=== PATIENT | female | born 1940 | race Caucasian/White ===

== ENCOUNTER 2017-03-24 19:28 | Emergency (ER) | payer OTHER ==
--- NOTE | 2017-03-24 19:40 | PDOC ---
History of Present Illness - General History Source: Patient Exam Limitations: No Limitations - History of Present Illness Initial Comments: 03/24/17 19:48 The patient is a 76 year old female, with a significant past medical history of colon CA, and HTN who presents to the emergency department s/p mechanical fall this morning. The patient reports being unable to ambulate this morning secondary to right hip pain. She reports in an attempt of getting out of bed falling and hitting her head on her mirror. She denies any LOC. The patient reports after the incident being able to walk and go to work normally with some discomfort in her right hip. She arrives with c/os of right hip pain. She reports being on blood thinners. She denies recent fevers, headache or dizziness. She denies recent nausea, vomit, diarrhea or constipation. She denies recent dysuria, frequency, urgency or hematuria. She denies recent chest pain or shortness of breath. PAST MEDICAL HISTORY: See HPI PAST SURGICAL HISTORY: Right THR. FAMILY HISTORY: No pertinent history. SOCIAL HISTORY: Patient lives with family and is employed. MEDICATIONS: Reviewed. ALLERGIES: As per nursing notes. ROS General: No fevers or chills, no weakness, no weight loss HEENT: No change in vision. No sore throat. No ear pain CardioVascular: No chest pain or shortness of breath Respiratory:No cough, or wheezing. Gastrointestinal: No nausea, vomiting, diarrhea or constipation. No rectal bleeding Genitourinary: No dysuria, hematuria, or frequency Musculoskeletal: +RIGHT hip. No joint or muscle pain or swelling Neurologic: No headache, vertigo, dizziness or loss of consciousness Psychiatric: No depression Skin: No rashes or easy bruising Endocrine: no increased thirst or abnormal weight change Allergic: no skin or latex allergy All other systems reviewed and normal Exam: GENERAL: The patient is awake, alert, and fully oriented, in no acute distress. HEAD: Normal with no signs of trauma. No ecchymosis, or tenderness on palpation of the scap. BACK: No tenderness to palpation of the C-Spine. EYES: Pupils equal, round and reactive to light, extraocular movements intact, sclera anicteric, conjunctiva clear. EXTREMITIES: Normal range of motion, no edema. NEUROLOGICAL: Normal speech, normal gait. PSYCH: Normal mood, normal affect. SKIN: Warm, Dry, normal turgor, no rashes or lesions noted. <O'Anastacio,Alli - Last Filed: 03/24/17 19:53> - General History Source: Patient Exam Limitations: No Limitations - History of Present Illness Initial Comments: 03/24/17 21:56 A portion of this note was documented by scribe services under my direction. I have reviewed the details of the note, within reason, and agree with the documentation. The case summary and management plan written by me. Assessment and plan: This is a 76-year-old female who said that she tripped and fell injuring her head and right hip. Patient is on Coumadin so was sent in by her primary care doctor for Coumadin level and x-rays and head CT. 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 Patient had no complaints of headache or neurological complaints. Patient's only complaint was of some right hip pain which she said she had before the fall and has been chronic for many months. Patient was reassured that there is nothing to be concerned about at this point and she is discharged home. <Marie Lujan I - Last Filed: 03/24/17 21:58> - General Chief Complaint: Injury Stated Complaint: TRIPPED AND FELL THIS AM HIT HEAD Time Seen by Provider: 03/24/17 19:30 Past History <Alli Coker - Last Filed: 03/24/17 19:53> - Past Medical History Cancer: Yes (COLON, LUNG, LIVER) Dialysis: Yes HTN: Yes - Surgical History Abdominal Surgery: Yes (COLON, LIVER SX) Orthopedic Surgery: Yes (r. total hip replacement) - Psycho/Social/Smoking Cessation Hx Anxiety: No Suicidal Ideation: No Smoking Status: No Smoking History: Never smoked Have you smoked in the past 12 months: No Number of Cigarettes Smoked Daily: 0 Hx Alcohol Use: No Drug/Substance Use Hx: No Substance Use Type: None <Marie Lujan I - Last Filed: 03/24/17 21:58> - Past Medical History Allergies/Adverse Reactions: Allergies Allergy/AdvReac Type Severity Reaction Status Date / Time Penicillins Allergy Mild rash/itchin Verified 06/25/16 12:13 ess Home Medications: Ambulatory Orders Lisinopril [Prinivil] 5 mg PO DAILY 02/17/12 Metoprolol Succinate [Toprol XL] 25 mg PO DAILY 02/17/12 Cholecalciferol (Vitamin D3) [Vitamin D3 -] 4,000 unit PO DAILY 05/08/16 Ferrous Gluconate [Iron] 256 mg PO BID 05/08/16 Folic Acid 1 mg PO DAILY 05/08/16 Furosemide [Lasix -] 20 mg PO DAILY 05/08/16 Multivits,Ca,Minerals/Iron/FA [One-A-Day Women's] 1 each PO DAILY 05/08/16 Potassium Chloride [K-Dur -] 20 meq PO DAILY 05/08/16 Warfarin Sodium [Coumadin] 7.5 mg PO ASDIR 05/08/16 *Physical Exam - Vital Signs Last Vital Signs Temp Pulse Resp BP Pulse Ox 98.8 F 100 H 18 90/51 96 03/24/17 19:40 03/24/17 19:40 03/24/17 19:40 03/24/17 19:40 03/24/17 19:40 <Alli Coker - Last Filed: 03/24/17 19:53> *DC/Admit/Observation/Transfer - Attestations Scribe Attestion: 03/24/17 19:48 Documentation prepared by Alli Coker, acting as medical care evaluation specialist for Marie Lujan MD. <lAli Coker - Last Filed: 03/24/17 19:53> - Discharge Dispostion Admit: No <Marie Lujan I - Last Filed: 03/24/17 21:58> Diagnosis at time of Disposition: Closed head injury Qualifiers: Encounter type: initial encounter Qualified Code(s): S09.90XA - Unspecified injury of head, initial encounter - Discharge Dispostion Disposition: HOME Condition at time of disposition: Stable - Patient Instructions Printed Discharge Instructions: DI for Closed Head Injury Additional Instructions: Tylenol or Motrin as needed for pain. Return to the emergency department immediately with ANY new, persistent or worsening symptoms. Continue any medications as previously prescribed by your physician. You should follow up with your primary doctor as soon as possible regarding today's emergency department visit. . Please make sure your doctor reviews the results of your emergency evaluation. Thank you for coming to the Emergency Department today for your care. It was a pleasure to see you today. Please note that your evaluation is INCOMPLETE until you follow-up with your doctor.
[2017-03-24 19:45] VITALS: BP 90/51; PULSE 100; TEMP 98.8; BMI 44.6
[2017-03-24 20:14] LABS: INR 2.51 (0.82-1.09); PROTHROMBIN TIME (PATIENT) 27.6 SEC (10.2-13.0)
== END 2017-03-24 22:01 | disposition home or self-care (01) ==
LOC: FER 19:28
DX: S09.90XA Unspecified injury of head, initial encounter (principal); Z85.038 Personal history of other malignant neoplasm of large intestine; Z85.05 Personal history of malignant neoplasm of liver; Z96.641 Presence of right artificial hip joint; I10 Essential (primary) hypertension; Z99.2 Dependence on renal dialysis; Z99.89 Dependence on other enabling machines and devices; W18.39XA Other fall on same level, initial encounter; Y93.89 Activity, other specified; Y92.9 Unspecified place or not applicable
CPT/HCPCS: 36415; 70450-TC; 73523-TC; 85610; 99281-25

== ENCOUNTER 2019-10-15 12:10 | Inpatient (IN) | payer OTHER ==
[2019-10-15] MEDS ORDERED: ALBUTEROL SO4 HFA INHALER IH ONE (12:41)
[2019-10-15] MEDS ORDERED: ACETAMINOPHEN 1000 MG/100 ML VIAL (NON FORMULARY) IVPB ONE (13:38)
[2019-10-15] MEDS ORDERED: ACETAMINOPHEN INJECTION 100 ML IVPB ONE (13:39)
[2019-10-15 13:45] LABS: WHITE BLOOD COUNT 8.1 K/mm3 (4.0-10.8)
[2019-10-15 13:48] LABS: HEMATOCRIT 38.1 % (32.4-45.2); HEMOGLOBIN 12.9 GM/dl (10.7-15.3); MCH 29.5 pg (25.7-33.7); MEAN PLT VOLUME 8.8 fl (7.5-11.1); PLATELET COUNT 195 K/MM3 (134-434); RBC 4.38 M/mm3 (3.60-5.2); RDW 13.3 % (11.6-15.6)
[2019-10-15] MEDS ORDERED: SODIUM CHLORIDE 0.9% 1000 ML INFUS.BAG IV ONE ×2 (13:53→15:16)
[2019-10-15 14:01] LABS: PLATELET ESTIMATE ADEQUATE
[2019-10-15 14:25] LABS: VENOUS PC02 35.6 mmHg (38-52); VENOUS PH 7.49 (7.31-7.41)
[2019-10-15 14:26] LABS: VENOUS PO2 < 49 mmHg (28-48)
[2019-10-15 14:31] LABS: ALBUMIN 2.7 g/dl (3.4-5.0); BILIRUBIN,TOTAL 1.3 mg/dl (0.2-1); CREATININE 0.9 mg/dl (0.55-1.3); POTASSIUM 4.2 mmol/L (3.5-5.1); TOT PROT 6.3 g/dl (6.4-8.2)
[2019-10-15] MEDS ORDERED: AZTREONAM 1 GM in DEXTROSE 5%-WATER - 50 ML IVPB ONE (15:19)
[2019-10-15 15:50] LABS: ACTIVATED PTT 65.4 SECONDS (25.2-36.5)
[2019-10-15 15:53] LABS: INR 13.13 (0.83-1.09)
[2019-10-15 15:58] LABS: N-TERMINAL BNP 822.9 pg/ml (5-450)
[2019-10-15 17:16] LABS: ACTIVATED PTT 51.9 SECONDS (25.2-36.5)
[2019-10-15 18:04] LABS: PROTHROMBIN TIME (PATIENT) 168.4 SEC (9.7-13.0)
[2019-10-15 18:05] LABS: INR 13.9 (0.83-1.09)
[2019-10-15] MEDS ORDERED: PHYTONADIONE 5 MG TABLET PO ONE (18:11)
[2019-10-16] MEDS: SODIUM CHLORIDE 1,000 ML IV SCH (04:37)
[2019-10-16 08:08] LABS: BASO % 0.1 % (0-2.0); HEMATOCRIT 36.5 % (32.4-45.2); HEMOGLOBIN 12.4 GM/dL (10.7-15.3); LYMPH % 4.7 % (8-40); MCH 29.4 pg (25.7-33.7); MCHC 34.1 g/dl (32.0-36.0); MEAN CELL VOLUME 86.3 fl (80-96); MEAN PLT VOLUME 8.3 fl (7.5-11.1); MONO % 4.2 % (3.8-10.2); PLATELET COUNT 182 K/MM3 (134-434); RBC 4.22 M/mm3 (3.60-5.2); RDW 14.6 % (11.6-15.6); WHITE BLOOD COUNT 8.3 K/mm3 (4.0-10.0)
[2019-10-16 08:17] LABS: PROTHROMBIN TIME (PATIENT) 52.7 SEC (9.7-13.0)
[2019-10-16 08:38] LABS: ALBUMIN 2.2 g/dl (3.4-5.0); BILIRUBIN,TOTAL 1.5 mg/dL (0.2-1); BLOOD UREA NITROGEN 13.9 mg/dL (7-18); CALCIUM 7.2 mg/dL (8.5-10.1); CREATININE 0.7 mg/dL (0.55-1.3); POTASSIUM 3.9 mmol/L (3.5-5.1); TOT PROT 5.9 g/dl (6.4-8.2)
[2019-10-16 09:44] LABS: ANISOCYTOSIS 1+; MACROCYTOSIS 0; OVALOCYTE 1+; PLATELET ESTIMATE NORMAL
[2019-10-16] MEDS ORDERED: WARFARIN NA 5 MG TABLET PO SCH (10:00)
[2019-10-16 10:14] LABS: INR 4.4 (0.83-1.09)
[2019-10-16] MEDS ORDERED: CEFEPIME HCL 1 GM VIAL (RESTRICTED TO ID) ONE ×2 (12:43→18:13)
[2019-10-16] MEDS ORDERED: DEXTROSE 5%-WATER - 50 ML IVPB ONE ×2 (12:43→18:14)
[2019-10-16] MEDS: POTASSIUM CHLORIDE TABS 20 MEQ TABLET.ER (FP) PO SCH (13:55)
[2019-10-16] MEDS: ASCORBIC ACID 500 MG TABLET (FP) PO SCH (13:57)
[2019-10-16] MEDS: CEFEPIME 1 GM in DEXTROSE 5%-WATER - 50 ML IVPB SCH ×2 (13:57→18:41)
[2019-10-16] MEDS ORDERED: PT OWN MED DRAWER 7, Y5N ONE ×2 (14:25→20:49)
[2019-10-16] MEDS: HYDROXYCHLOROQUINE SO4 200 MG TABLET (FP) PO SCH ×2 (15:06→21:52)
[2019-10-16] MEDS ORDERED: SODIUM CHLORIDE 250 ML IV STA (15:29)
[2019-10-17] MEDS ORDERED: CEFEPIME HCL 1 GM VIAL (RESTRICTED TO ID) ONE ×3 (01:07→21:54)
[2019-10-17] MEDS ORDERED: DEXTROSE 5%-WATER - 50 ML IVPB ONE ×3 (01:08→21:54)
[2019-10-17] MEDS: CEFEPIME 1 GM in DEXTROSE 5%-WATER - 50 ML IVPB SCH ×3 (01:28→22:02)
[2019-10-17] MEDS: SODIUM CHLORIDE 1,000 ML IV SCH (02:49)
[2019-10-17] MEDS: ASCORBIC ACID 500 MG TABLET (FP) PO SCH (09:01)
[2019-10-17] MEDS: POTASSIUM CHLORIDE TABS 20 MEQ TABLET.ER (FP) PO SCH (09:01)
[2019-10-17] MEDS ORDERED: AZITHROMYCIN IVPB 500 MG/250 ML BAG IVPB ONE (10:00)
[2019-10-17 13:43] LABS: BASO % 0.1 % (0-2.0); HEMOGLOBIN 12.8 GM/dL (10.7-15.3); LYMPH % 3.3 % (8-40); MCH 29.3 pg (25.7-33.7); MCHC 33.7 g/dl (32.0-36.0); MEAN CELL VOLUME 87.1 fl (80-96); MEAN PLT VOLUME 7.8 fl (7.5-11.1); MONO % 3.1 % (3.8-10.2); NEUT % 93.5 % (42.8-82.8); PLATELET COUNT 224 K/MM3 (134-434); RBC 4.36 M/mm3 (3.60-5.2); RDW 15.1 % (11.6-15.6); WHITE BLOOD COUNT 9.3 K/mm3 (4.0-10.0)
[2019-10-17 13:51] LABS: INR 1.77 (0.83-1.09)
[2019-10-17 14:27] LABS: ALBUMIN 2.2 g/dl (3.4-5.0); BILIRUBIN,TOTAL 1.7 mg/dL (0.2-1); BLOOD UREA NITROGEN 11.1 mg/dL (7-18); CALCIUM 7.8 mg/dL (8.5-10.1); CREATININE 0.7 mg/dL (0.55-1.3); POTASSIUM 3.9 mmol/L (3.5-5.1); TOT PROT 6.5 g/dl (6.4-8.2)
[2019-10-17 14:44] LABS: ANISOCYTOSIS 0; MACROCYTOSIS 0; PLATELET ESTIMATE NORMAL
[2019-10-17] MEDS ORDERED: FUROSEMIDE 40 MG/4 ML INJECTABLE VIAL IVPUSH ONE (15:44)
[2019-10-17 17:09] LABS: URINE APPEARANCE TURBID; URINE BILIRUBIN NEGATIVE (NEGATIVE); URINE COLOR DK YELLOW; URINE GLUCOSE (UA) NEGATIVE (NEGATIVE); URINE KETONE NEGATIVE (NEGATIVE); URINE LEUK ESTERASE NEGATIVE (NEGATIVE); URINE NITRITE NEGATIVE (NEGATIVE); URINE PROTEIN 1+ (NEGATIVE)
[2019-10-17] MEDS ORDERED: PT OWN MED DRAWER 7, Y5N ONE (17:20)
[2019-10-17 17:26] LABS: EPI CELLS 14.7 /uL (0-25.1); HYALINE CASTS 2.18 /uL (0-3.1); URINE BACTERIA 4.7 /uL (0-1359); URINE WBC 10.9 /uL (0-25.8)
[2019-10-17] MEDS: WARFARIN NA 5 MG TABLET PO SCH (17:47)
[2019-10-17 17:51] LABS: URINE CRYSTALS MODERATE /hpf
[2019-10-17] MEDS ORDERED: WARFARIN NA 5 MG TABLET PO SCH (18:00)
[2019-10-17] MEDS ORDERED: VANCOMYCIN 1 GRAM (PRE-DOCKED) 1,000 MG/250 ML BAG IVPB ONE (18:33)
[2019-10-17] MEDS: PROPOFOL 1,000,000 MCG/100 ML VIAL IVPB SCH (19:16)
[2019-10-17] MEDS: MIDAZOLAM IN 0.9 % SOD.CHLORID 100 MG/100 ML PLAST..BAG IVPB SCH (19:16)
[2019-10-17] MEDS: VASOPRESSIN 50 UNITS in SODIUM CHLORIDE 97.5 ML IVPB SCH (20:45)
[2019-10-17] MEDS ORDERED: SODIUM CHLORIDE 1,000 ML IV STA (21:35)
[2019-10-17] MEDS: POLYETHYLENE GLYCOL 3350 119 GM BTL PO SCH (21:51)
[2019-10-17] MEDS ORDERED: ATORVASTATIN CA 40 MG TABLET (FP) PO SCH (22:00)
[2019-10-17] MEDS: HYDROXYCHLOROQUINE SO4 200 MG TABLET (FP) PO SCH (22:03)
[2019-10-17] MEDS ORDERED: ACETAMINOPHEN 325 MG TABLET (FP) PO PRN (22:16)
[2019-10-18] MEDS: PROPOFOL 1,000,000 MCG/100 ML VIAL IVPB SCH
[2019-10-18 00:52] LABS: ARTERIAL BLD GAS O2 SATURATION 90.9 % (95-98); ARTERIAL BLOOD GAS BASE EXCESS -1.7 meq/l (-2-2); ARTERIAL BLOOD GAS PCO2 53.3 mmHg (35-45); ARTERIAL BLOOD GAS PO2 67.2 mmHg (80-100); ARTERIAL BLOOD GAS pH 7.29 (7.35-7.45)
[2019-10-18 00:54] LABS: ALLENS TEST POSITIVE
[2019-10-18] MEDS ORDERED: CEFEPIME HCL 1 GM VIAL (RESTRICTED TO ID) ONE ×3 (01:07→17:45)
[2019-10-18] MEDS ORDERED: DEXTROSE 5%-WATER - 50 ML IVPB ONE ×3 (01:07→17:45)
[2019-10-18] MEDS: CEFEPIME 1 GM in DEXTROSE 5%-WATER - 50 ML IVPB SCH ×3 (02:01→18:20)
[2019-10-18] MEDS ORDERED: NOREPINEPHRINE BITARTRATE 4 MG/4 ML ML IV ONE (02:29)
[2019-10-18] MEDS: NOREPINEPHRINE BITARTRATE 8,000 MCG in DEXTROSE 5%-WATER - 492 ML IV SCH (02:35)
[2019-10-18] MEDS: HYDROCORTISONE SOD SUCCINATE 100 MG/2 ML VIAL IVPUSH SCH ×4 (03:12→21:35)
[2019-10-18 03:29] LABS: ARTERIAL BLD GAS O2 SATURATION 93.3 % (95-98); ARTERIAL BLOOD GAS BASE EXCESS -4.3 meq/l (-2-2); ARTERIAL BLOOD GAS PCO2 63.5 mmHg (35-45); ARTERIAL BLOOD GAS PO2 81.9 mmHg (80-100); ARTERIAL BLOOD GAS pH 7.22 (7.35-7.45)
[2019-10-18 03:35] LABS: ALLENS TEST POSITIVE
[2019-10-18 06:45] LABS: BASO % 0.2 % (0-2.0); HEMATOCRIT 38.7 % (32.4-45.2); HEMOGLOBIN 12.9 GM/dL (10.7-15.3); LYMPH % 4.8 % (8-40); MCH 29.4 pg (25.7-33.7); MCHC 33.3 g/dl (32.0-36.0); MEAN CELL VOLUME 88.3 fl (80-96); MEAN PLT VOLUME 8.3 fl (7.5-11.1); MONO % 4.1 % (3.8-10.2); NEUT % 90.9 % (42.8-82.8); PLATELET COUNT 288 K/MM3 (134-434); RBC 4.38 M/mm3 (3.60-5.2); RDW 15.3 % (11.6-15.6); WHITE BLOOD COUNT 14.6 K/mm3 (4.0-10.0)
[2019-10-18 06:57] LABS: INR 2.16 (0.83-1.09); PROTHROMBIN TIME (PATIENT) 25.7 SEC (9.7-13.0)
[2019-10-18 06:59] LABS: ACTIVATED PTT 36.9 SECONDS (25.2-36.5)
[2019-10-18 07:14] LABS: BILIRUBIN,DIRECT 1.8 mg/dL (0.0-0.2); BILIRUBIN,TOTAL 2.2 mg/dL (0.2-1); BLOOD UREA NITROGEN 17.9 mg/dL (7-18); CALCIUM 7.2 mg/dL (8.5-10.1); CREATININE 1.1 mg/dL (0.55-1.3); MAGNESIUM 1.8 mg/dL (1.8-2.4); TOT PROT 6.2 g/dl (6.4-8.2)
[2019-10-18] MEDS: POLYETHYLENE GLYCOL 3350 119 GM BTL PO SCH ×2 (09:22→22:30)
[2019-10-18] MEDS: POTASSIUM CHLORIDE TABS 20 MEQ TABLET.ER (FP) PO SCH (09:22)
[2019-10-18] MEDS: PANTOPRAZOLE SODIUM 40 MG VIAL IVPUSH SCH (09:22)
[2019-10-18] MEDS: HYDROXYCHLOROQUINE SO4 200 MG TABLET (FP) PO SCH (09:22)
[2019-10-18] MEDS: ASCORBIC ACID 500 MG TABLET (FP) PO SCH (09:22)
[2019-10-18] MEDS ORDERED: PANTOPRAZOLE 40 MG TABLET PO SCH (10:00)
[2019-10-18 10:07] LABS: ARTERIAL BLD GAS O2 SATURATION 92.2 % (95-98); ARTERIAL BLOOD GAS BASE EXCESS -4.1 meq/l (-2-2)
[2019-10-18 10:12] LABS: ALLENS TEST POSITIVE; ARTERIAL BLOOD GAS PO2 74.3 mmHg (80-100)
[2019-10-18 10:16] LABS: ARTERIAL BLOOD GAS PCO2 70.9 mmHg (35-45); ARTERIAL BLOOD GAS pH 7.19 (7.35-7.45)
[2019-10-18] MEDS ORDERED: PT OWN MED DRAWER 7, Y5N ONE ×2 (16:00→17:18)
[2019-10-18] MEDS: FLUDROCORTISONE ACETATE 0.1 MG TABLET (FP) PO SCH (16:11)
[2019-10-18] MEDS: WARFARIN NA 5 MG TABLET PO SCH (17:12)
[2019-10-18] MEDS ORDERED: HYDROXYCHLOROQUINE 25 MG/ML NGT SCH (22:00)
[2019-10-18] MEDS: VASOPRESSIN 50 UNITS in SODIUM CHLORIDE 97.5 ML IVPB SCH (23:47)
[2019-10-19] MEDS ORDERED: CEFEPIME HCL 1 GM VIAL (RESTRICTED TO ID) ONE ×3 (01:42→18:39)
[2019-10-19] MEDS ORDERED: DEXTROSE 5%-WATER - 50 ML IVPB ONE ×3 (01:43→18:39)
[2019-10-19] MEDS: CEFEPIME 1 GM in DEXTROSE 5%-WATER - 50 ML IVPB SCH ×3 (01:58→18:57)
[2019-10-19] MEDS: NOREPINEPHRINE BITARTRATE 8,000 MCG in DEXTROSE 5%-WATER - 492 ML IV SCH (01:59)
[2019-10-19] MEDS: HYDROCORTISONE SOD SUCCINATE 100 MG/2 ML VIAL IVPUSH SCH ×4 (02:45→21:54)
[2019-10-19] MEDS ORDERED: EPINEPHrine 1:10,000 (P-F SYR) 1 MG/10 ML DISP.SYRIN ONE (04:44)
[2019-10-19 06:45] LABS: BASO % 0.1 % (0-2.0); HEMATOCRIT 39.9 % (32.4-45.2); HEMOGLOBIN 13.4 GM/dL (10.7-15.3); LYMPH % 3.6 % (8-40); MCH 29.4 pg (25.7-33.7); MCHC 33.7 g/dl (32.0-36.0); MEAN CELL VOLUME 87.3 fl (80-96); MEAN PLT VOLUME 7.9 fl (7.5-11.1); MONO % 3.1 % (3.8-10.2); NEUT % 93.2 % (42.8-82.8); PLATELET COUNT 294 K/MM3 (134-434); RBC 4.57 M/mm3 (3.60-5.2); RDW 15.2 % (11.6-15.6); WHITE BLOOD COUNT 16.4 K/mm3 (4.0-10.0)
[2019-10-19 07:13] LABS: ALBUMIN 1.8 g/dl (3.4-5.0); BILIRUBIN,DIRECT 0.7 mg/dL (0.0-0.2); BILIRUBIN,TOTAL 0.9 mg/dL (0.2-1); BLOOD UREA NITROGEN 28.4 mg/dL (7-18); CALCIUM 7.6 mg/dL (8.5-10.1); MAGNESIUM 1.9 mg/dL (1.8-2.4); PHOSPHOROUS 4.2 mg/dL (2.5-4.9); POTASSIUM 4.1 mmol/L (3.5-5.1); TOT PROT 6.2 g/dl (6.4-8.2)
[2019-10-19 08:45] LABS: ANISOCYTOSIS 1+; MACROCYTOSIS 0; PLATELET ESTIMATE NORMAL
[2019-10-19 09:22] LABS: ARTERIAL BLD GAS O2 SATURATION 97.9 % (95-98); ARTERIAL BLOOD GAS BASE EXCESS -4.5 meq/l (-2-2); ARTERIAL BLOOD GAS PCO2 55.1 mmHg (35-45); ARTERIAL BLOOD GAS PO2 120 mmHg (80-100); ARTERIAL BLOOD GAS pH 7.25 (7.35-7.45)
[2019-10-19 09:57] LABS: ALLENS TEST POSITIVE
[2019-10-19] MEDS: FLUDROCORTISONE ACETATE 0.1 MG TABLET (FP) PO SCH (12:04)
[2019-10-19] MEDS: ASCORBIC ACID 500 MG TABLET (FP) PO SCH (12:04)
[2019-10-19] MEDS: PANTOPRAZOLE SODIUM 40 MG VIAL IVPUSH SCH (12:04)
[2019-10-19] MEDS: POLYETHYLENE GLYCOL 3350 119 GM BTL NGT SCH ×2 (12:05→21:54)
[2019-10-19] MEDS ORDERED: MAGNESIUM SULF 50% (8.12 MEQ/2 ML-1 GM VIAL) IVPB ONE (13:46)
[2019-10-19] MEDS: PROPOFOL 1,000,000 MCG/100 ML VIAL IVPB SCH ×2 (14:38→23:00)
[2019-10-19] MEDS ORDERED: NOREPINEPHRINE BITARTRATE 4 MG/4 ML ML IV ONE (15:34)
[2019-10-19] MEDS ORDERED: PT OWN MED DRAWER 7, Y5N ONE (16:27)
[2019-10-19] MEDS: MIDAZOLAM IN 0.9 % SOD.CHLORID 100 MG/100 ML PLAST..BAG IVPB SCH (17:28)
[2019-10-19] MEDS: WARFARIN NA 5 MG TABLET PO SCH (18:57)
[2019-10-20] MEDS ORDERED: CEFEPIME HCL 1 GM VIAL (RESTRICTED TO ID) ONE ×3 (01:29→18:52)
[2019-10-20] MEDS ORDERED: DEXTROSE 5%-WATER - 50 ML IVPB ONE ×3 (01:29→18:52)
[2019-10-20] MEDS: MIDAZOLAM IN 0.9 % SOD.CHLORID 100 MG/100 ML PLAST..BAG IVPB SCH ×2 (01:32→20:39)
[2019-10-20] MEDS: CEFEPIME 1 GM in DEXTROSE 5%-WATER - 50 ML IVPB SCH ×3 (01:35→18:53)
[2019-10-20] MEDS ORDERED: PT OWN MED DRAWER 7, Y5N ONE (01:51)
[2019-10-20] MEDS: NOREPINEPHRINE BITARTRATE 8,000 MCG in DEXTROSE 5%-WATER - 492 ML IV SCH (02:30)
[2019-10-20] MEDS: HYDROCORTISONE SOD SUCCINATE 100 MG/2 ML VIAL IVPUSH SCH ×4 (03:45→20:59)
[2019-10-20 06:40] LABS: BASO % 0.2 % (0-2.0); HEMATOCRIT 40.6 % (32.4-45.2); HEMOGLOBIN 13.5 GM/dL (10.7-15.3); LYMPH % 2.8 % (8-40); MCH 29.2 pg (25.7-33.7); MCHC 33.3 g/dl (32.0-36.0); MEAN CELL VOLUME 87.8 fl (80-96); MEAN PLT VOLUME 7.5 fl (7.5-11.1); MONO % 3.7 % (3.8-10.2); NEUT % 93.3 % (42.8-82.8); PLATELET COUNT 272 K/MM3 (134-434); RBC 4.63 M/mm3 (3.60-5.2); RDW 15.4 % (11.6-15.6); WHITE BLOOD COUNT 12.1 K/mm3 (4.0-10.0)
[2019-10-20 06:57] LABS: ALBUMIN 1.8 g/dl (3.4-5.0); BILIRUBIN,DIRECT 0.4 mg/dL (0.0-0.2); BILIRUBIN,TOTAL 0.6 mg/dL (0.2-1); BLOOD UREA NITROGEN 36.9 mg/dL (7-18); CALCIUM 7.7 mg/dL (8.5-10.1); CREATININE 1.1 mg/dL (0.55-1.3); MAGNESIUM 2.4 mg/dL (1.8-2.4); PHOSPHOROUS 3.5 mg/dL (2.5-4.9); POTASSIUM 4.2 mmol/L (3.5-5.1); TOT PROT 6.2 g/dl (6.4-8.2)
[2019-10-20 07:03] LABS: ARTERIAL BLD GAS O2 SATURATION 96.5 % (95-98); ARTERIAL BLOOD GAS BASE EXCESS -3.3 meq/l (-2-2); ARTERIAL BLOOD GAS PCO2 54.1 mmHg (35-45); ARTERIAL BLOOD GAS PO2 90.6 mmHg (80-100); ARTERIAL BLOOD GAS pH 7.27 (7.35-7.45)
[2019-10-20 07:39] LABS: ALLENS TEST POSITIVE
[2019-10-20] MEDS: PROPOFOL 1,000,000 MCG/100 ML VIAL IVPB SCH ×3 (07:53→18:51)
[2019-10-20 10:05] LABS: ANISOCYTOSIS 0; MACROCYTOSIS 0; PLATELET ESTIMATE NORMAL
[2019-10-20] MEDS: ASCORBIC ACID 500 MG TABLET (FP) PO SCH (10:29)
[2019-10-20] MEDS: FLUDROCORTISONE ACETATE 0.1 MG TABLET (FP) PO SCH (10:29)
[2019-10-20] MEDS: PANTOPRAZOLE SODIUM 40 MG VIAL IVPUSH SCH (10:29)
[2019-10-20] MEDS: POLYETHYLENE GLYCOL 3350 119 GM BTL NGT SCH ×2 (10:38→21:00)
[2019-10-20] MEDS ORDERED: BENZOIN/ALOE VERA/STORAX/TOLU 58 ML BOTTLE ONE (14:45)
[2019-10-20] MEDS ORDERED: PROPOFOL 1,000,000 MCG/100 ML VIAL ONE (15:06)
[2019-10-20] MEDS ORDERED: fentaNYL CITRATE 250 MCG/5 ML VIAL ONE (15:06)
[2019-10-20] MEDS: WARFARIN NA 5 MG TABLET PO SCH (18:53)
[2019-10-20] MEDS ORDERED: NOREPINEPHRINE BITARTRATE 4 MG/4 ML ML IV ONE (19:37)
[2019-10-20] MEDS: ATORVASTATIN CA 40 MG TABLET (FP) PO SCH (21:00)
[2019-10-20 21:37] LABS: PROTHROMBIN TIME (PATIENT) 135.6 SEC (9.7-13.0)
[2019-10-20 21:41] LABS: INR 11.2 (0.83-1.09)
[2019-10-21] MEDS ORDERED: CEFEPIME HCL 1 GM VIAL (RESTRICTED TO ID) ONE ×3 (00:53→15:30)
[2019-10-21] MEDS ORDERED: DEXTROSE 5%-WATER - 50 ML IVPB ONE ×3 (00:53→15:30)
[2019-10-21] MEDS: CEFEPIME 1 GM in DEXTROSE 5%-WATER - 50 ML IVPB SCH ×3 (01:24→17:51)
[2019-10-21] MEDS: HYDROCORTISONE SOD SUCCINATE 100 MG/2 ML VIAL IVPUSH SCH ×4 (02:05→21:28)
[2019-10-21 06:14] LABS: BASO % 0.2 % (0-2.0); HEMATOCRIT 37.3 % (32.4-45.2); HEMOGLOBIN 12.2 GM/dL (10.7-15.3); LYMPH % 4.2 % (8-40); MCH 29.2 pg (25.7-33.7); MCHC 32.8 g/dl (32.0-36.0); MEAN CELL VOLUME 89.1 fl (80-96); MEAN PLT VOLUME 7.1 fl (7.5-11.1); MONO % 5.9 % (3.8-10.2); NEUT % 89.7 % (42.8-82.8); PLATELET COUNT 270 K/MM3 (134-434); RBC 4.18 M/mm3 (3.60-5.2); RDW 15.5 % (11.6-15.6); WHITE BLOOD COUNT 8.8 K/mm3 (4.0-10.0)
[2019-10-21] MEDS: NOREPINEPHRINE BITARTRATE 8,000 MCG in DEXTROSE 5%-WATER - 492 ML IV SCH (06:28)
[2019-10-21 06:34] LABS: ARTERIAL BLD GAS O2 SATURATION 95.4 % (95-98); ARTERIAL BLOOD GAS BASE EXCESS -2.2 meq/l (-2-2); ARTERIAL BLOOD GAS PO2 83.5 mmHg (80-100)
[2019-10-21 07:09] LABS: ALBUMIN 1.6 g/dl (3.4-5.0); BILIRUBIN,DIRECT 0.3 mg/dL (0.0-0.2); BILIRUBIN,TOTAL 0.4 mg/dL (0.2-1); BLOOD UREA NITROGEN 46.4 mg/dL (7-18); CALCIUM 7.6 mg/dL (8.5-10.1); CREATININE 1.3 mg/dL (0.55-1.3); MAGNESIUM 2.6 mg/dL (1.8-2.4); PHOSPHOROUS 3.5 mg/dL (2.5-4.9); POTASSIUM 4.7 mmol/L (3.5-5.1); TOT PROT 5.6 g/dl (6.4-8.2)
[2019-10-21 07:32] LABS: ALLENS TEST POSITIVE
[2019-10-21 07:45] LABS: ARTERIAL BLOOD GAS PCO2 76.6 mmHg (35-45); ARTERIAL BLOOD GAS pH 7.19 (7.35-7.45)
[2019-10-21] MEDS ORDERED: PHYTONADIONE 10 MG/1 ML AMP IVPB ONE (07:45)
[2019-10-21] MEDS: MIDAZOLAM IN 0.9 % SOD.CHLORID 100 MG/100 ML PLAST..BAG IVPB SCH (09:12)
[2019-10-21] MEDS: PROPOFOL 1,000,000 MCG/100 ML VIAL IVPB SCH (09:13)
[2019-10-21] MEDS: PANTOPRAZOLE SODIUM 40 MG VIAL IVPUSH SCH (09:16)
[2019-10-21] MEDS: ASCORBIC ACID 500 MG TABLET (FP) PO SCH (09:17)
[2019-10-21] MEDS: FLUDROCORTISONE ACETATE 0.1 MG TABLET (FP) PO SCH (09:17)
[2019-10-21] MEDS: POLYETHYLENE GLYCOL 3350 119 GM BTL NGT SCH ×2 (09:20→21:28)
[2019-10-21 09:59] LABS: ANISOCYTOSIS 0; MACROCYTOSIS 0; PLATELET ESTIMATE NORMAL
[2019-10-21] MEDS ORDERED: HYDROXYCHLOROQUINE 200 MG/8 ML ORAL SUSPENSION NGT SCH (14:00)
[2019-10-21] MEDS: HYDROXYCHLOROQUINE 200 MG/8 ML ORAL SUSPENSION NGT SCH ×2 (18:02→21:28)
[2019-10-21 18:50] LABS: PROTHROMBIN TIME (PATIENT) 111.8 SEC (9.7-13.0)
[2019-10-21 18:54] LABS: INR 9.26 (0.83-1.09)
[2019-10-21] MEDS: ATORVASTATIN CA 40 MG TABLET (FP) PO SCH (21:28)
[2019-10-22] MEDS ORDERED: DEXTROSE 5%-WATER - 50 ML IVPB ONE ×3 (00:04→16:41)
[2019-10-22] MEDS ORDERED: CEFEPIME HCL 1 GM VIAL (RESTRICTED TO ID) ONE ×3 (00:04→16:41)
[2019-10-22] MEDS: CEFEPIME 1 GM in DEXTROSE 5%-WATER - 50 ML IVPB SCH ×3 (02:45→17:40)
[2019-10-22] MEDS: PROPOFOL 1,000,000 MCG/100 ML VIAL IVPB SCH (03:12)
[2019-10-22] MEDS: NOREPINEPHRINE BITARTRATE 8,000 MCG in DEXTROSE 5%-WATER - 492 ML IV SCH (03:13)
[2019-10-22] MEDS: HYDROCORTISONE SOD SUCCINATE 100 MG/2 ML VIAL IVPUSH SCH ×4 (03:13→21:11)
[2019-10-22 06:48] LABS: BASO % 0.2 % (0-2.0); EOS % 1.1 % (0-4.5); HEMATOCRIT 40.6 % (32.4-45.2); LYMPH % 3.8 % (8-40); MCH 29.1 pg (25.7-33.7); MCHC 32.1 g/dl (32.0-36.0); MEAN CELL VOLUME 90.5 fl (80-96); MEAN PLT VOLUME 7.4 fl (7.5-11.1); MONO % 5.1 % (3.8-10.2); NEUT % 89.8 % (42.8-82.8); PLATELET COUNT 303 K/MM3 (134-434); RBC 4.49 M/mm3 (3.60-5.2); RDW 15.8 % (11.6-15.6); WHITE BLOOD COUNT 11.7 K/mm3 (4.0-10.0)
[2019-10-22 07:09] LABS: ALBUMIN 1.6 g/dl (3.4-5.0); BILIRUBIN,TOTAL 0.4 mg/dL (0.2-1); BLOOD UREA NITROGEN 58.2 mg/dL (7-18); CALCIUM 7.9 mg/dL (8.5-10.1); CREATININE 1.4 mg/dL (0.55-1.3); MAGNESIUM 2.6 mg/dL (1.8-2.4); PHOSPHOROUS 4.3 mg/dL (2.5-4.9); POTASSIUM 5.7 mmol/L (3.5-5.1); TOT PROT 6.2 g/dl (6.4-8.2)
[2019-10-22 07:25] LABS: INR 3.15 (0.83-1.09); PROTHROMBIN TIME (PATIENT) 37.6 SEC (9.7-13.0)
[2019-10-22 08:15] LABS: ARTERIAL BLD GAS O2 SATURATION 98.4 % (95-98); ARTERIAL BLOOD GAS BASE EXCESS -3.3 meq/l (-2-2); ARTERIAL BLOOD GAS PO2 150 mmHg (80-100)
[2019-10-22 08:23] LABS: ALLENS TEST POSITIVE
[2019-10-22] MEDS: FLUDROCORTISONE ACETATE 0.1 MG TABLET (FP) PO SCH (10:04)
[2019-10-22] MEDS: POLYETHYLENE GLYCOL 3350 119 GM BTL NGT SCH ×2 (10:04→21:11)
[2019-10-22] MEDS: HYDROXYCHLOROQUINE 200 MG/8 ML ORAL SUSPENSION NGT SCH ×2 (10:05→21:11)
[2019-10-22] MEDS: ASCORBIC ACID 500 MG TABLET (FP) PO SCH (10:05)
[2019-10-22] MEDS: PANTOPRAZOLE SODIUM 40 MG VIAL IVPUSH SCH (10:05)
[2019-10-22 12:49] LABS: PLATELET ESTIMATE ADEQUATE
[2019-10-22] MEDS ORDERED: ZINC SULFATE 220 MG CAPSULE (FP) PO SCH (14:45)
[2019-10-22 17:27] LABS: ARTERIAL BLD GAS O2 SATURATION 98.5 % (95-98); ARTERIAL BLOOD GAS BASE EXCESS 0.9 meq/l (-2-2); ARTERIAL BLOOD GAS PCO2 66.2 mmHg (35-45); ARTERIAL BLOOD GAS PO2 129 mmHg (80-100); ARTERIAL BLOOD GAS pH 7.26 (7.35-7.45)
[2019-10-22 17:29] LABS: ALLENS TEST POSITIVE
[2019-10-22] MEDS: ATORVASTATIN CA 40 MG TABLET (FP) PO SCH (21:11)
[2019-10-23] MEDS ORDERED: CEFEPIME HCL 1 GM VIAL (RESTRICTED TO ID) ONE ×3 (00:49→17:58)
[2019-10-23] MEDS ORDERED: DEXTROSE 5%-WATER - 50 ML IVPB ONE ×3 (00:50→17:58)
[2019-10-23] MEDS: PROPOFOL 1,000,000 MCG/100 ML VIAL IVPB SCH (01:41)
[2019-10-23] MEDS: CEFEPIME 1 GM in DEXTROSE 5%-WATER - 50 ML IVPB SCH ×3 (01:42→18:41)
[2019-10-23 06:52] LABS: BASO % 0.1 % (0-2.0); EOS % 0.1 % (0-4.5); HEMATOCRIT 36.1 % (32.4-45.2); LYMPH % 3.4 % (8-40); MCH 29.5 pg (25.7-33.7); MCHC 33.4 g/dl (32.0-36.0); MEAN CELL VOLUME 88.4 fl (80-96); MEAN PLT VOLUME 7.3 fl (7.5-11.1); NEUT % 91.4 % (42.8-82.8); PLATELET COUNT 212 K/MM3 (134-434); RBC 4.08 M/mm3 (3.60-5.2); RDW 15.2 % (11.6-15.6); WHITE BLOOD COUNT 8.6 K/mm3 (4.0-10.0)
[2019-10-23 06:59] LABS: PROTHROMBIN TIME (PATIENT) 51.5 SEC (9.7-13.0)
[2019-10-23 07:33] LABS: INR 4.3 (0.83-1.09)
[2019-10-23 07:43] LABS: ALBUMIN 1.6 g/dl (3.4-5.0); BILIRUBIN,TOTAL 0.6 mg/dL (0.2-1); BLOOD UREA NITROGEN 71.7 mg/dL (7-18); CALCIUM 7.9 mg/dL (8.5-10.1); CREATININE 1.3 mg/dL (0.55-1.3); MAGNESIUM 2.5 mg/dL (1.8-2.4); PHOSPHOROUS 2.8 mg/dL (2.5-4.9); TOT PROT 5.8 g/dl (6.4-8.2)
[2019-10-23 10:07] LABS: ARTERIAL BLOOD GAS BASE EXCESS 4.4 meq/l (-2-2); ARTERIAL BLOOD GAS PCO2 56.8 mmHg (35-45); ARTERIAL BLOOD GAS PO2 89.4 mmHg (80-100); ARTERIAL BLOOD GAS pH 7.35 (7.35-7.45)
[2019-10-23 10:12] LABS: ALLENS TEST POSITIVE
[2019-10-23 10:48] LABS: ANISOCYTOSIS 1+; MACROCYTOSIS 0; OVALOCYTE 1+; PLATELET ESTIMATE NORMAL; TEAR DROP CELLS 1+
[2019-10-23] MEDS: ASCORBIC ACID 500 MG TABLET (FP) PO SCH (11:00)
[2019-10-23] MEDS: PANTOPRAZOLE SODIUM 40 MG VIAL IVPUSH SCH (11:00)
[2019-10-23] MEDS: POLYETHYLENE GLYCOL 3350 119 GM BTL NGT SCH ×2 (11:00→22:35)
[2019-10-23] MEDS: HYDROXYCHLOROQUINE 200 MG/8 ML ORAL SUSPENSION NGT SCH ×2 (11:00→22:35)
[2019-10-23] MEDS: DOPAMINE 400 MG/D5W - 400,000 MCG/250 ML INFUS.BAG IVPB SCH ×2 (18:27→18:28)
[2019-10-23] MEDS: NOREPINEPHRINE BITARTRATE 8,000 MCG in DEXTROSE 5%-WATER - 492 ML IV SCH (18:41)
[2019-10-23] MEDS: MIDAZOLAM IN 0.9 % SOD.CHLORID 100 MG/100 ML PLAST..BAG IVPB SCH (18:42)
[2019-10-23] MEDS: ATORVASTATIN CA 40 MG TABLET (FP) PO SCH (22:26)
[2019-10-24] MEDS: PROPOFOL 1,000,000 MCG/100 ML VIAL IVPB SCH ×2 (02:00→10:16)
[2019-10-24] MEDS ORDERED: CEFEPIME HCL 1 GM VIAL (RESTRICTED TO ID) ONE ×2 (02:12→09:23)
[2019-10-24] MEDS ORDERED: DEXTROSE 5%-WATER - 50 ML IVPB ONE ×2 (02:12→09:23)
[2019-10-24] MEDS: CEFEPIME 1 GM in DEXTROSE 5%-WATER - 50 ML IVPB SCH ×2 (02:16→10:02)
[2019-10-24] MEDS: NOREPINEPHRINE BITARTRATE 8,000 MCG in DEXTROSE 5%-WATER - 492 ML IV SCH (06:21)
[2019-10-24 07:09] LABS: BASO % 0.1 % (0-2.0); EOS % 0.2 % (0-4.5); HEMATOCRIT 31.9 % (32.4-45.2); HEMOGLOBIN 10.8 GM/dL (10.7-15.3); LYMPH % 7.8 % (8-40); MCH 29.7 pg (25.7-33.7); MCHC 33.8 g/dl (32.0-36.0); MEAN CELL VOLUME 87.8 fl (80-96); MEAN PLT VOLUME 7.5 fl (7.5-11.1); MONO % 6.1 % (3.8-10.2); NEUT % 85.8 % (42.8-82.8); PLATELET COUNT 171 K/MM3 (134-434); RBC 3.64 M/mm3 (3.60-5.2); RDW 14.8 % (11.6-15.6); WHITE BLOOD COUNT 6.3 K/mm3 (4.0-10.0)
[2019-10-24 07:37] LABS: INR 3.19 (0.83-1.09); PROTHROMBIN TIME (PATIENT) 38.1 SEC (9.7-13.0)
[2019-10-24 07:48] LABS: ALBUMIN 1.4 g/dl (3.4-5.0); BILIRUBIN,TOTAL 1.1 mg/dL (0.2-1); BLOOD UREA NITROGEN 81.8 mg/dL (7-18); CALCIUM 7.6 mg/dL (8.5-10.1); CREATININE 1.1 mg/dL (0.55-1.3); MAGNESIUM 2.3 mg/dL (1.8-2.4); PHOSPHOROUS 2.7 mg/dL (2.5-4.9); POTASSIUM 4.4 mmol/L (3.5-5.1); TOT PROT 5.2 g/dl (6.4-8.2)
[2019-10-24 09:11] LABS: ARTERIAL BLD GAS O2 SATURATION 99.1 % (95-98); ARTERIAL BLOOD GAS BASE EXCESS 5.2 meq/l (-2-2); ARTERIAL BLOOD GAS PO2 149 mmHg (80-100); ARTERIAL BLOOD GAS pH 7.46 (7.35-7.45)
[2019-10-24 09:13] LABS: ALLENS TEST POSITIVE
[2019-10-24] MEDS: ASCORBIC ACID 500 MG TABLET (FP) PO SCH (10:02)
[2019-10-24] MEDS: PANTOPRAZOLE SODIUM 40 MG VIAL IVPUSH SCH (10:02)
[2019-10-24] MEDS: POLYETHYLENE GLYCOL 3350 119 GM BTL NGT SCH ×2 (10:03→21:28)
[2019-10-24] MEDS: HYDROXYCHLOROQUINE 200 MG/8 ML ORAL SUSPENSION NGT SCH ×2 (10:03→21:29)
[2019-10-24 13:03] LABS: ANISOCYTOSIS 0; MACROCYTOSIS 0; PLATELET ESTIMATE NORMAL
[2019-10-24] MEDS: MIDAZOLAM IN 0.9 % SOD.CHLORID 100 MG/100 ML PLAST..BAG IVPB SCH (13:15)
[2019-10-24] MEDS ORDERED: FUROSEMIDE 40 MG/4 ML INJECTABLE VIAL IVPUSH ONE (14:15)
[2019-10-24] MEDS ORDERED: ZINC SULFATE 220 MG CAPSULE (FP) PO SCH (14:15)
[2019-10-24] MEDS: DOPAMINE 400 MG/D5W - 400,000 MCG/250 ML INFUS.BAG IVPB SCH (15:14)
[2019-10-24] MEDS: ATORVASTATIN CA 40 MG TABLET (FP) PO SCH (21:28)
[2019-10-24] MEDS: ZINC SULFATE 220 MG CAPSULE (FP) PO SCH (21:28)
[2019-10-24] MEDS: WARFARIN NA 5 MG TABLET PO SCH (21:29)
[2019-10-25 06:02] LABS: ARTERIAL BLD GAS O2 SATURATION 95.4 % (95-98); ARTERIAL BLOOD GAS BASE EXCESS 7.2 meq/l (-2-2); ARTERIAL BLOOD GAS PCO2 51.1 mmHg (35-45); ARTERIAL BLOOD GAS PO2 75.3 mmHg (80-100); ARTERIAL BLOOD GAS pH 7.42 (7.35-7.45)
[2019-10-25 07:04] LABS: BASO % 0.1 % (0-2.0); EOS % 0.1 % (0-4.5); HEMATOCRIT 34.6 % (32.4-45.2); HEMOGLOBIN 11.6 GM/dL (10.7-15.3); LYMPH % 8.8 % (8-40); MCH 29.2 pg (25.7-33.7); MCHC 33.6 g/dl (32.0-36.0); MEAN CELL VOLUME 86.8 fl (80-96); MEAN PLT VOLUME 8.2 fl (7.5-11.1); PLATELET COUNT 184 K/MM3 (134-434); RBC 3.98 M/mm3 (3.60-5.2); RDW 14.8 % (11.6-15.6); WHITE BLOOD COUNT 7.9 K/mm3 (4.0-10.0)
[2019-10-25 07:12] LABS: INR 1.92 (0.83-1.09); PROTHROMBIN TIME (PATIENT) 22.8 SEC (9.7-13.0)
[2019-10-25 07:27] LABS: ALBUMIN 1.5 g/dl (3.4-5.0); BILIRUBIN,TOTAL 0.5 mg/dL (0.2-1); BLOOD UREA NITROGEN 79.3 mg/dL (7-18); CALCIUM 7.8 mg/dL (8.5-10.1); CREATININE 1.2 mg/dL (0.55-1.3); PHOSPHOROUS 3.3 mg/dL (2.5-4.9); POTASSIUM 3.9 mmol/L (3.5-5.1); TOT PROT 5.7 g/dl (6.4-8.2)
[2019-10-25 08:23] LABS: ALLENS TEST POSITIVE
[2019-10-25] MEDS: POLYETHYLENE GLYCOL 3350 119 GM BTL NGT SCH ×2 (09:53→23:45)
[2019-10-25] MEDS: ZINC SULFATE 220 MG CAPSULE (FP) PO SCH ×2 (09:54→23:45)
[2019-10-25] MEDS: PANTOPRAZOLE SODIUM 40 MG VIAL IVPUSH SCH (09:54)
[2019-10-25] MEDS: ASCORBIC ACID 500 MG TABLET (FP) PO SCH (09:55)
[2019-10-25 11:39] LABS: ANISOCYTOSIS 1+; MACROCYTOSIS 0; OVALOCYTE 1+; PLATELET ESTIMATE NORMAL
[2019-10-25] MEDS: CLINDAMYCIN 600MG PREMIX IVPB 600 MG/50 ML BAG IVPB SCH ×2 (17:16→17:17)
[2019-10-25] MEDS: WARFARIN NA 5 MG TABLET PO SCH (17:18)
[2019-10-25] MEDS: ATORVASTATIN CA 40 MG TABLET (FP) PO SCH (23:46)
[2019-10-25] MEDS: PROPOFOL 1,000,000 MCG/100 ML VIAL IVPB SCH (23:47)
[2019-10-26] MEDS: CLINDAMYCIN 600MG PREMIX IVPB 600 MG/50 ML BAG IVPB SCH ×3 (02:47→17:56)
[2019-10-26] MEDS: MIDAZOLAM IN 0.9 % SOD.CHLORID 100 MG/100 ML PLAST..BAG IVPB SCH (05:38)
[2019-10-26] MEDS: PROPOFOL 1,000,000 MCG/100 ML VIAL IVPB SCH (05:39)
[2019-10-26 06:58] LABS: BASO % 0.1 % (0-2.0); HEMATOCRIT 29.8 % (32.4-45.2); LYMPH % 10.9 % (8-40); MCH 29.5 pg (25.7-33.7); MCHC 33.5 g/dl (32.0-36.0); MEAN PLT VOLUME 8.3 fl (7.5-11.1); MONO % 6.2 % (3.8-10.2); NEUT % 82.8 % (42.8-82.8); PLATELET COUNT 163 K/MM3 (134-434); RBC 3.38 M/mm3 (3.60-5.2); RDW 14.7 % (11.6-15.6); WHITE BLOOD COUNT 7.7 K/mm3 (4.0-10.0)
[2019-10-26 07:06] LABS: INR 2.97 (0.83-1.09); PROTHROMBIN TIME (PATIENT) 35.4 SEC (9.7-13.0)
[2019-10-26 07:24] LABS: ALBUMIN 1.4 g/dl (3.4-5.0); BILIRUBIN,TOTAL 0.6 mg/dL (0.2-1); BLOOD UREA NITROGEN 70.8 mg/dL (7-18); PHOSPHOROUS 3.8 mg/dL (2.5-4.9); POTASSIUM 3.7 mmol/L (3.5-5.1); TOT PROT 5.6 g/dl (6.4-8.2)
[2019-10-26 07:36] LABS: ARTERIAL BLD GAS O2 SATURATION 94.1 % (95-98); ARTERIAL BLOOD GAS BASE EXCESS 11.6 meq/l (-2-2); ARTERIAL BLOOD GAS PCO2 63.5 mmHg (35-45); ARTERIAL BLOOD GAS PO2 74.4 mmHg (80-100)
[2019-10-26 07:39] LABS: ALLENS TEST POSITIVE
[2019-10-26] MEDS: ZINC SULFATE 220 MG CAPSULE (FP) PO SCH ×3 (09:08→21:36)
[2019-10-26] MEDS: PANTOPRAZOLE SODIUM 40 MG VIAL IVPUSH SCH (09:09)
[2019-10-26] MEDS: ASCORBIC ACID 500 MG TABLET (FP) PO SCH (09:09)
[2019-10-26] MEDS: POLYETHYLENE GLYCOL 3350 119 GM BTL NGT SCH ×2 (09:10→21:36)
[2019-10-26] MEDS ORDERED: FUROSEMIDE 40 MG/4 ML INJECTABLE VIAL IVPUSH ONE (12:05)
[2019-10-26 12:06] LABS: ANISOCYTOSIS 0; MACROCYTOSIS 0; PLATELET ESTIMATE NORMAL
[2019-10-26] MEDS: WARFARIN NA 5 MG TABLET PO SCH (18:14)
[2019-10-26] MEDS: ATORVASTATIN CA 40 MG TABLET (FP) PO SCH (21:35)
[2019-10-27] MEDS: CLINDAMYCIN 600MG PREMIX IVPB 600 MG/50 ML BAG IVPB SCH ×3 (03:03→18:13)
[2019-10-27] MEDS: PROPOFOL 1,000,000 MCG/100 ML VIAL IVPB SCH ×3 (03:04→23:10)
[2019-10-27] MEDS: MIDAZOLAM IN 0.9 % SOD.CHLORID 100 MG/100 ML PLAST..BAG IVPB SCH ×2 (06:14→14:00)
[2019-10-27 07:18] LABS: ARTERIAL BLD GAS O2 SATURATION 92.6 % (95-98); ARTERIAL BLOOD GAS BASE EXCESS 13.2 meq/l (-2-2); ARTERIAL BLOOD GAS PCO2 64.6 mmHg (35-45)
[2019-10-27 07:42] LABS: ALLENS TEST POSITIVE
[2019-10-27 07:43] LABS: BASO % 0.1 % (0-2.0); HEMATOCRIT 33.6 % (32.4-45.2); HEMOGLOBIN 11.1 GM/dL (10.7-15.3); LYMPH % 6.3 % (8-40); MCH 29.2 pg (25.7-33.7); MEAN CELL VOLUME 88.3 fl (80-96); MEAN PLT VOLUME 8.9 fl (7.5-11.1); MONO % 5.9 % (3.8-10.2); NEUT % 87.7 % (42.8-82.8); PLATELET COUNT 208 K/MM3 (134-434); RBC 3.81 M/mm3 (3.60-5.2); RDW 14.7 % (11.6-15.6); WHITE BLOOD COUNT 9.8 K/mm3 (4.0-10.0)
[2019-10-27 07:49] LABS: PROTHROMBIN TIME (PATIENT) 73.3 SEC (9.7-13.0)
[2019-10-27 08:08] LABS: ALBUMIN 1.5 g/dl (3.4-5.0); BILIRUBIN,TOTAL 0.5 mg/dL (0.2-1); BLOOD UREA NITROGEN 68.1 mg/dL (7-18); CREATININE 1.2 mg/dL (0.55-1.3); MAGNESIUM 2.1 mg/dL (1.8-2.4); POTASSIUM 3.4 mmol/L (3.5-5.1); TOT PROT 5.5 g/dl (6.4-8.2)
[2019-10-27] MEDS ORDERED: POTASSIUM CHLORIDE ORAL LIQUID 20 MEQ/15 ML PO ONE (08:30)
[2019-10-27 08:46] LABS: INR 6.1 (0.83-1.09)
[2019-10-27] MEDS: KCL 10 MEQ IVPB 10 MEQ/100 ML INFUS.BAG IVPB SCH ×2 (09:30→10:30)
[2019-10-27] MEDS: POLYETHYLENE GLYCOL 3350 119 GM BTL NGT SCH ×2 (10:00→23:12)
[2019-10-27] MEDS: PANTOPRAZOLE SODIUM 40 MG VIAL IVPUSH SCH (11:00)
[2019-10-27] MEDS: ZINC SULFATE 220 MG CAPSULE (FP) PO SCH ×2 (11:00→23:10)
[2019-10-27] MEDS: ASCORBIC ACID 500 MG TABLET (FP) PO SCH (11:00)
[2019-10-27] MEDS ORDERED: FUROSEMIDE 40 MG/4 ML INJECTABLE VIAL IVPUSH ONE (14:50)
[2019-10-27] MEDS: ATORVASTATIN CA 40 MG TABLET (FP) PO SCH (23:12)
[2019-10-27] MEDS ORDERED: ATORVASTATIN CA 20 MG TABLET (FP) ONE (23:12)
[2019-10-28] MEDS: PROPOFOL 1,000,000 MCG/100 ML VIAL IVPB SCH ×3 (01:18→20:59)
[2019-10-28] MEDS: CLINDAMYCIN 600MG PREMIX IVPB 600 MG/50 ML BAG IVPB SCH ×3 (01:18→18:30)
[2019-10-28] MEDS: MIDAZOLAM IN 0.9 % SOD.CHLORID 100 MG/100 ML PLAST..BAG IVPB SCH (05:47)
[2019-10-28 07:39] LABS: PROTHROMBIN TIME (PATIENT) 52.6 SEC (9.7-13.0)
[2019-10-28 08:02] LABS: ALBUMIN 1.4 g/dl (3.4-5.0); BILIRUBIN,TOTAL 0.6 mg/dL (0.2-1); BLOOD UREA NITROGEN 65.2 mg/dL (7-18); CALCIUM 7.5 mg/dL (8.5-10.1); MAGNESIUM 2.3 mg/dL (1.8-2.4); PHOSPHOROUS 3.6 mg/dL (2.5-4.9); POTASSIUM 3.5 mmol/L (3.5-5.1); TOT PROT 5.3 g/dl (6.4-8.2)
[2019-10-28 08:41] LABS: INR 4.39 (0.83-1.09)
[2019-10-28 08:45] LABS: ARTERIAL BLD GAS O2 SATURATION 93.1 % (95-98); ARTERIAL BLOOD GAS BASE EXCESS 13.3 meq/l (-2-2); ARTERIAL BLOOD GAS PCO2 56.3 mmHg (35-45); ARTERIAL BLOOD GAS PO2 66.8 mmHg (80-100); ARTERIAL BLOOD GAS pH 7.46 (7.35-7.45)
[2019-10-28 08:46] LABS: ALLENS TEST POSITIVE
[2019-10-28] MEDS: POLYETHYLENE GLYCOL 3350 119 GM BTL NGT SCH ×2 (10:30→21:00)
[2019-10-28] MEDS: PANTOPRAZOLE SODIUM 40 MG VIAL IVPUSH SCH (10:30)
[2019-10-28] MEDS: ZINC SULFATE 220 MG CAPSULE (FP) PO SCH ×2 (10:30→20:59)
[2019-10-28] MEDS: ASCORBIC ACID 500 MG TABLET (FP) PO SCH (10:30)
[2019-10-28] MEDS ORDERED: FUROSEMIDE 40 MG/4 ML INJECTABLE VIAL IVPUSH ONE (11:00)
[2019-10-28] MEDS ORDERED: PT OWN MED DRAWER 7, Y5N ONE (11:42)
[2019-10-28 13:39] LABS: BASO % 0.1 % (0-2.0); HEMATOCRIT 21.9 % (32.4-45.2); HEMOGLOBIN 7.3 GM/dL (10.7-15.3); LYMPH % 6.9 % (8-40); MCH 29.5 pg (25.7-33.7); MCHC 33.2 g/dl (32.0-36.0); MEAN PLT VOLUME 8.7 fl (7.5-11.1); MONO % 11.6 % (3.8-10.2); NEUT % 81.4 % (42.8-82.8); PLATELET COUNT 109 K/MM3 (134-434); RBC 2.46 M/mm3 (3.60-5.2); RDW 14.8 % (11.6-15.6); WHITE BLOOD COUNT 7.4 K/mm3 (4.0-10.0)
[2019-10-28 19:31] LABS: BASO % 0.3 % (0-2.0); EOS % 0.1 % (0-4.5); HEMATOCRIT 35.2 % (32.4-45.2); HEMOGLOBIN 11.4 GM/dL (10.7-15.3); LYMPH % 6.6 % (8-40); MCH 28.8 pg (25.7-33.7); MCHC 32.4 g/dl (32.0-36.0); MEAN CELL VOLUME 88.9 fl (80-96); MONO % 6.5 % (3.8-10.2); NEUT % 86.5 % (42.8-82.8); PLATELET COUNT 234 K/MM3 (134-434); RBC 3.96 M/mm3 (3.60-5.2); RDW 14.9 % (11.6-15.6); WHITE BLOOD COUNT 11.8 K/mm3 (4.0-10.0)
[2019-10-28] MEDS ORDERED: VASOPRESSIN 40 UNITS in SODIUM CHLORIDE 98 ML IVPB SCH ×2 (21:00→21:09)
[2019-10-28] MEDS ORDERED: VASOPRESSIN 20 UNITS/ML VIAL IV ONE (21:07)
[2019-10-29 06:16] LABS: ARTERIAL BLD GAS O2 SATURATION 98.8 % (95-98); ARTERIAL BLOOD GAS BASE EXCESS 14.9 meq/l (-2-2); ARTERIAL BLOOD GAS PCO2 48.5 mmHg (35-45); ARTERIAL BLOOD GAS PO2 132 mmHg (80-100); ARTERIAL BLOOD GAS pH 7.52 (7.35-7.45)
[2019-10-29 06:32] LABS: ALLENS TEST POSITIVE
[2019-10-29] MEDS: CLINDAMYCIN 600MG PREMIX IVPB 600 MG/50 ML BAG IVPB SCH ×3 (06:37→18:49)
[2019-10-29 07:16] LABS: BASO % 0.3 % (0-2.0); HEMATOCRIT 35.8 % (32.4-45.2); HEMOGLOBIN 11.8 GM/dL (10.7-15.3); LYMPH % 12.9 % (8-40); MEAN CELL VOLUME 87.9 fl (80-96); MEAN PLT VOLUME 9.2 fl (7.5-11.1); MONO % 10.1 % (3.8-10.2); NEUT % 76.7 % (42.8-82.8); PLATELET COUNT 222 K/MM3 (134-434); RBC 4.07 M/mm3 (3.60-5.2); WHITE BLOOD COUNT 13.2 K/mm3 (4.0-10.0)
[2019-10-29 07:24] LABS: INR 2.96 (0.83-1.09); PROTHROMBIN TIME (PATIENT) 35.3 SEC (9.7-13.0)
[2019-10-29 08:16] LABS: ALBUMIN 1.5 g/dl (3.4-5.0); BILIRUBIN,TOTAL 0.9 mg/dL (0.2-1); BLOOD UREA NITROGEN 55.4 mg/dL (7-18); CALCIUM 7.8 mg/dL (8.5-10.1); CREATININE 0.9 mg/dL (0.55-1.3); PHOSPHOROUS 3.4 mg/dL (2.5-4.9)
[2019-10-29 08:17] LABS: MAGNESIUM 2.2 mg/dL (1.8-2.4); POTASSIUM 4.3 mmol/L (3.5-5.1)
[2019-10-29] MEDS ORDERED: FUROSEMIDE 40 MG/4 ML INJECTABLE VIAL IVPUSH ONE (09:21)
[2019-10-29] MEDS: PROPOFOL 1,000,000 MCG/100 ML VIAL IVPB SCH (10:48)
[2019-10-29] MEDS: PANTOPRAZOLE SODIUM 40 MG VIAL IVPUSH SCH (10:49)
[2019-10-29] MEDS: ASCORBIC ACID 500 MG TABLET (FP) PO SCH (10:49)
[2019-10-29] MEDS: ZINC SULFATE 220 MG CAPSULE (FP) PO SCH ×2 (10:49→22:01)
[2019-10-29] MEDS: POLYETHYLENE GLYCOL 3350 119 GM BTL NGT SCH ×2 (10:50→22:01)
[2019-10-29] MEDS: WARFARIN NA 5 MG TABLET PO SCH (18:49)
[2019-10-30] MEDS: CLINDAMYCIN 600MG PREMIX IVPB 600 MG/50 ML BAG IVPB SCH ×3 (02:34→18:34)
[2019-10-30 06:42] LABS: ARTERIAL BLD GAS O2 SATURATION 96.5 % (95-98); ARTERIAL BLOOD GAS BASE EXCESS 15.9 meq/l (-2-2); ARTERIAL BLOOD GAS PCO2 55.9 mmHg (35-45); ARTERIAL BLOOD GAS PO2 86.3 mmHg (80-100); ARTERIAL BLOOD GAS pH 7.49 (7.35-7.45)
[2019-10-30 06:59] LABS: ALLENS TEST POSITIVE
[2019-10-30 07:37] LABS: BASO % 0.3 % (0-2.0); EOS % 0.1 % (0-4.5); HEMATOCRIT 37.4 % (32.4-45.2); HEMOGLOBIN 12.2 GM/dL (10.7-15.3); LYMPH % 7.8 % (8-40); MCH 28.8 pg (25.7-33.7); MCHC 32.6 g/dl (32.0-36.0); MEAN CELL VOLUME 88.2 fl (80-96); MEAN PLT VOLUME 8.6 fl (7.5-11.1); MONO % 12.5 % (3.8-10.2); NEUT % 79.3 % (42.8-82.8); PLATELET COUNT 253 K/MM3 (134-434); RBC 4.24 M/mm3 (3.60-5.2); RDW 15.1 % (11.6-15.6); WHITE BLOOD COUNT 16.8 K/mm3 (4.0-10.0)
[2019-10-30 07:39] LABS: PROTHROMBIN TIME (PATIENT) 58.2 SEC (9.7-13.0)
[2019-10-30 07:42] LABS: ACTIVATED PTT 42.3 SECONDS (25.2-36.5)
[2019-10-30 07:58] LABS: ALBUMIN 1.7 g/dl (3.4-5.0); BILIRUBIN,TOTAL 0.8 mg/dL (0.2-1); BLOOD UREA NITROGEN 53.8 mg/dL (7-18); CALCIUM 8.1 mg/dL (8.5-10.1); CREATININE 0.9 mg/dL (0.55-1.3); MAGNESIUM 2.2 mg/dL (1.8-2.4); N-TERMINAL BNP 298.7 pg/ml (5-450); PHOSPHOROUS 4.7 mg/dL (2.5-4.9); POTASSIUM 3.8 mmol/L (3.5-5.1); TOT PROT 6.2 g/dl (6.4-8.2)
[2019-10-30] MEDS: ASCORBIC ACID 500 MG TABLET (FP) PO SCH (09:40)
[2019-10-30] MEDS: ZINC SULFATE 220 MG CAPSULE (FP) PO SCH ×2 (09:40→21:42)
[2019-10-30] MEDS: PANTOPRAZOLE SODIUM 40 MG VIAL IVPUSH SCH (09:40)
[2019-10-30 09:56] LABS: INR 4.85 (0.83-1.09)
[2019-10-30] MEDS: POLYETHYLENE GLYCOL 3350 119 GM BTL NGT SCH ×2 (11:00→21:42)
[2019-10-30] MEDS ORDERED: MORPHINE SULFATE 2 MG/ML VIAL IVPUSH PRN (17:48)
[2019-10-30] MEDS ORDERED: MIDAZOLAM HCL 2 MG/2 ML SINGLE DOSE VIAL IVPUSH PRN (17:48)
[2019-10-30] MEDS: ATORVASTATIN CA 40 MG TABLET (FP) PO SCH (21:42)
[2019-10-31] MEDS: CLINDAMYCIN 600MG PREMIX IVPB 600 MG/50 ML BAG IVPB SCH ×3 (02:39→18:34)
[2019-10-31 06:17] LABS: ARTERIAL BLOOD GAS BASE EXCESS 14.8 meq/l (-2-2); ARTERIAL BLOOD GAS PCO2 65.3 mmHg (35-45); ARTERIAL BLOOD GAS PO2 86.8 mmHg (80-100); ARTERIAL BLOOD GAS pH 7.43 (7.35-7.45)
[2019-10-31 06:39] LABS: ALLENS TEST POSITIVE
[2019-10-31 07:59] LABS: ACTIVATED PTT 57.9 SECONDS (25.2-36.5)
[2019-10-31 08:05] LABS: BASO % 0.1 % (0-2.0); HEMATOCRIT 37.6 % (32.4-45.2); HEMOGLOBIN 12.5 GM/dL (10.7-15.3); LYMPH % 6.8 % (8-40); MCH 29.2 pg (25.7-33.7); MCHC 33.1 g/dl (32.0-36.0); MEAN CELL VOLUME 88.1 fl (80-96); MEAN PLT VOLUME 8.8 fl (7.5-11.1); NEUT % 86.1 % (42.8-82.8); PLATELET COUNT 285 K/MM3 (134-434); RBC 4.27 M/mm3 (3.60-5.2); RDW 15.3 % (11.6-15.6); WHITE BLOOD COUNT 12.2 K/mm3 (4.0-10.0)
[2019-10-31 08:12] LABS: ALBUMIN 1.8 g/dl (3.4-5.0); BLOOD UREA NITROGEN 52.3 mg/dL (7-18); CALCIUM 8.5 mg/dL (8.5-10.1); CREATININE 0.9 mg/dL (0.55-1.3); MAGNESIUM 2.4 mg/dL (1.8-2.4); PHOSPHOROUS 4.5 mg/dL (2.5-4.9); POTASSIUM 3.3 mmol/L (3.5-5.1); TOT PROT 6.6 g/dl (6.4-8.2)
[2019-10-31 08:13] LABS: PROTHROMBIN TIME (PATIENT) 127.8 SEC (9.7-13.0)
[2019-10-31 08:14] LABS: INR 10.58 (0.83-1.09)
[2019-10-31] MEDS: ASCORBIC ACID 500 MG TABLET (FP) PO SCH (10:01)
[2019-10-31] MEDS: POLYETHYLENE GLYCOL 3350 119 GM BTL NGT SCH ×2 (10:02→22:01)
[2019-10-31] MEDS: PANTOPRAZOLE SODIUM 40 MG VIAL IVPUSH SCH (11:40)
[2019-10-31] MEDS ORDERED: PHYTONADIONE 10 MG/1 ML AMP IVPB ONE (13:28)
[2019-10-31 14:23] VITALS: BMI 35.5
[2019-10-31] MEDS: ZINC SULFATE 220 MG CAPSULE (FP) PO SCH ×2 (18:34→22:01)
[2019-10-31] MEDS: ATORVASTATIN CA 40 MG TABLET (FP) PO SCH (22:01)
[2019-11-01] MEDS: CLINDAMYCIN 600MG PREMIX IVPB 600 MG/50 ML BAG IVPB SCH ×2 (03:30→12:33)
[2019-11-01 06:55] LABS: BASO % 0.1 % (0-2.0); HEMATOCRIT 36.2 % (32.4-45.2); HEMOGLOBIN 11.8 GM/dL (10.7-15.3); LYMPH % 5.8 % (8-40); MCH 28.8 pg (25.7-33.7); MCHC 32.5 g/dl (32.0-36.0); MEAN CELL VOLUME 88.6 fl (80-96); MEAN PLT VOLUME 8.8 fl (7.5-11.1); MONO % 4.9 % (3.8-10.2); NEUT % 89.2 % (42.8-82.8); PLATELET COUNT 288 K/MM3 (134-434); RBC 4.08 M/mm3 (3.60-5.2); RDW 14.9 % (11.6-15.6); WHITE BLOOD COUNT 11.6 K/mm3 (4.0-10.0)
[2019-11-01 10:06] LABS: ARTERIAL BLD GAS O2 SATURATION 99.2 % (95-98); ARTERIAL BLOOD GAS BASE EXCESS 14.6 mmol/L (-2-2); ARTERIAL BLOOD GAS PCO2 39.4 mmHg (35-45); ARTERIAL BLOOD GAS PO2 162 mmHg (80-100); ARTERIAL BLOOD GAS pH 7.59 (7.35-7.45)
[2019-11-01] MEDS: ZINC SULFATE 220 MG CAPSULE (FP) PO SCH ×2 (10:30→22:57)
[2019-11-01] MEDS: POLYETHYLENE GLYCOL 3350 119 GM BTL NGT SCH ×2 (10:30→22:56)
[2019-11-01 10:31] LABS: INR 1.51 (0.83-1.09); PROTHROMBIN TIME (PATIENT) 17.9 SEC (9.7-13.0)
[2019-11-01 10:33] LABS: ALLENS TEST POSITIVE
[2019-11-01 10:46] LABS: ALBUMIN 1.8 g/dl (3.4-5.0); BILIRUBIN,TOTAL 1.1 mg/dL (0.2-1); BLOOD UREA NITROGEN 53.7 mg/dL (7-18); CALCIUM 8.8 mg/dL (8.5-10.1); MAGNESIUM 2.3 mg/dL (1.8-2.4); PHOSPHOROUS 3.5 mg/dL (2.5-4.9); TOT PROT 6.5 g/dl (6.4-8.2)
[2019-11-01] MEDS ORDERED: KCL 10 MEQ IVPB 10 MEQ/100 ML INFUS.BAG IVPB SCH ×2 (11:00→15:55)
[2019-11-01] MEDS ORDERED: DEXTROSE 5%-WATER - 1,000 ML IV SCH (11:00)
[2019-11-01] MEDS: KCL 10 MEQ IVPB 10 MEQ/100 ML INFUS.BAG IVPB SCH ×3 (11:00→14:30)
[2019-11-01] MEDS: ASCORBIC ACID 500 MG TABLET (FP) PO SCH (12:32)
[2019-11-01] MEDS: PANTOPRAZOLE SODIUM 40 MG VIAL IVPUSH SCH (12:32)
[2019-11-01] MEDS ORDERED: SODIUM CHLORIDE 1,000 ML IV SCH (13:45)
[2019-11-01] MEDS ORDERED: WARFARIN NA 3 MG TABLET PO ONE (18:00)
[2019-11-01] MEDS ORDERED: PT OWN MED DRAWER 7, Y5N ONE (19:02)
[2019-11-01] MEDS ORDERED: VASOPRESSIN 20 UNITS/ML VIAL IV ONE (19:10)
[2019-11-01] MEDS ORDERED: ENOXAPARIN NA (PORCINE) 80 MG/0.8 ML DISP.SYRIN SQ ONE (20:30)
[2019-11-01] MEDS: ATORVASTATIN CA 40 MG TABLET (FP) PO SCH (22:55)
[2019-11-02 06:05] LABS: BASO % 0.2 % (0-2.0); EOS % 0.1 % (0-4.5); HEMATOCRIT 38.8 % (32.4-45.2); HEMOGLOBIN 12.7 GM/dL (10.7-15.3); MCH 29.2 pg (25.7-33.7); MCHC 32.8 g/dl (32.0-36.0); MEAN CELL VOLUME 89.2 fl (80-96); MEAN PLT VOLUME 8.3 fl (7.5-11.1); MONO % 4.2 % (3.8-10.2); NEUT % 88.5 % (42.8-82.8); PLATELET COUNT 256 K/MM3 (134-434); RBC 4.35 M/mm3 (3.60-5.2); RDW 14.9 % (11.6-15.6); WHITE BLOOD COUNT 10.5 K/mm3 (4.0-10.0)
[2019-11-02 06:14] LABS: INR 1.34 (0.83-1.09); PROTHROMBIN TIME (PATIENT) 15.8 SEC (9.7-13.0)
[2019-11-02 06:59] LABS: ALBUMIN 1.7 g/dl (3.4-5.0); BILIRUBIN,TOTAL 1.1 mg/dL (0.2-1); BLOOD UREA NITROGEN 52.8 mg/dL (7-18); CALCIUM 8.3 mg/dL (8.5-10.1); CREATININE 0.9 mg/dL (0.55-1.3); MAGNESIUM 2.2 mg/dL (1.8-2.4); PHOSPHOROUS 3.4 mg/dL (2.5-4.9); TOT PROT 6.4 g/dl (6.4-8.2)
[2019-11-02 07:29] LABS: ARTERIAL BLD GAS O2 SATURATION 98.5 % (95-98); ARTERIAL BLOOD GAS BASE EXCESS 18.1 mmol/L (-2-2); ARTERIAL BLOOD GAS PO2 143 mmHg (80-100); ARTERIAL BLOOD GAS pH 7.45 (7.35-7.45)
[2019-11-02] MEDS: POLYETHYLENE GLYCOL 3350 119 GM BTL NGT SCH ×2 (12:23→21:13)
[2019-11-02] MEDS: PANTOPRAZOLE SODIUM 40 MG VIAL IVPUSH SCH (12:23)
[2019-11-02] MEDS: ZINC SULFATE 220 MG CAPSULE (FP) PO SCH ×2 (12:23→21:13)
[2019-11-02] MEDS: ASCORBIC ACID 500 MG TABLET (FP) PO SCH (12:23)
[2019-11-02] MEDS: ENOXAPARIN NA (PORCINE) 80 MG/0.8 ML DISP.SYRIN SQ SCH ×2 (12:23→21:13)
[2019-11-02] MEDS ORDERED: DEXTROSE 5%-WATER - 1,000 ML IV SCH (12:30)
[2019-11-02] MEDS ORDERED: MORPHINE SULFATE 2 MG/ML VIAL IVPUSH PRN (13:45)
[2019-11-02] MEDS ORDERED: ACETAMINOPHEN 325 MG TABLET (FP) PO PRN (13:45)
[2019-11-02] MEDS: ATORVASTATIN CA 40 MG TABLET (FP) PO SCH (21:13)
[2019-11-03 09:44] LABS: BASO % 0.1 % (0-2.0); HEMATOCRIT 35.1 % (32.4-45.2); HEMOGLOBIN 11.5 GM/dL (10.7-15.3); LYMPH % 9.8 % (8-40); MCH 29.2 pg (25.7-33.7); MCHC 32.9 g/dl (32.0-36.0); MEAN CELL VOLUME 88.7 fl (80-96); MEAN PLT VOLUME 8.4 fl (7.5-11.1); MONO % 4.9 % (3.8-10.2); NEUT % 85.2 % (42.8-82.8); PLATELET COUNT 286 K/MM3 (134-434); RBC 3.95 M/mm3 (3.60-5.2); RDW 14.7 % (11.6-15.6); WHITE BLOOD COUNT 8.5 K/mm3 (4.0-10.0)
[2019-11-03] MEDS: PANTOPRAZOLE SODIUM 40 MG VIAL IVPUSH SCH (10:08)
[2019-11-03 10:33] LABS: ALBUMIN 1.6 g/dl (3.4-5.0); BILIRUBIN,TOTAL 0.9 mg/dL (0.2-1); BLOOD UREA NITROGEN 52.4 mg/dL (7-18); CALCIUM 8.8 mg/dL (8.5-10.1); CREATININE 1.1 mg/dL (0.55-1.3); MAGNESIUM 2.3 mg/dL (1.8-2.4); PHOSPHOROUS 3.3 mg/dL (2.5-4.9); TOT PROT 5.9 g/dl (6.4-8.2)
[2019-11-03 10:42] LABS: POTASSIUM 2.7 mmol/L (3.5-5.1)
[2019-11-03] MEDS: ASCORBIC ACID 500 MG TABLET (FP) PO SCH (11:05)
[2019-11-03] MEDS: POLYETHYLENE GLYCOL 3350 119 GM BTL NGT SCH ×2 (11:05→21:04)
[2019-11-03] MEDS: ZINC SULFATE 220 MG CAPSULE (FP) PO SCH ×2 (11:05→21:05)
[2019-11-03] MEDS: ENOXAPARIN NA (PORCINE) 80 MG/0.8 ML DISP.SYRIN SQ SCH ×2 (11:12→21:04)
[2019-11-03] MEDS: KCL 10 MEQ IVPB 10 MEQ/100 ML INFUS.BAG IVPB SCH ×6 (12:58→20:07)
[2019-11-03] MEDS: DEXTROSE 5%-WATER - 1,000 ML IV SCH (16:19)
[2019-11-03] MEDS ORDERED: KCL 10 MEQ IVPB 10 MEQ/100 ML INFUS.BAG IVPB SCH (16:45)
[2019-11-03] MEDS: AMINO ACIDS 4.25%/D5W 1,000 ML IV SCH (20:07)
[2019-11-03] MEDS: ATORVASTATIN CA 40 MG TABLET (FP) PO SCH (21:04)
[2019-11-03 21:59] LABS: BLOOD UREA NITROGEN 50.6 mg/dL (7-18); CALCIUM 8.6 mg/dL (8.5-10.1); CREATININE 1.1 mg/dL (0.55-1.3); POTASSIUM 3.6 mmol/L (3.5-5.1)
[2019-11-04] MEDS: ENOXAPARIN NA (PORCINE) 80 MG/0.8 ML DISP.SYRIN SQ SCH ×2 (09:59→21:53)
[2019-11-04] MEDS: PANTOPRAZOLE SODIUM 40 MG VIAL IVPUSH SCH (09:59)
[2019-11-04] MEDS: POLYETHYLENE GLYCOL 3350 119 GM BTL NGT SCH (10:00)
[2019-11-04] MEDS: ASCORBIC ACID 500 MG TABLET (FP) PO SCH (10:00)
[2019-11-04] MEDS: ZINC SULFATE 220 MG CAPSULE (FP) PO SCH ×2 (10:00→21:53)
[2019-11-04 10:09] LABS: INR 1.41 (0.83-1.09); PROTHROMBIN TIME (PATIENT) 16.7 SEC (9.7-13.0)
[2019-11-04 10:37] LABS: ALBUMIN 1.6 g/dl (3.4-5.0); BILIRUBIN,TOTAL 1.4 mg/dL (0.2-1); BLOOD UREA NITROGEN 48.3 mg/dL (7-18); CALCIUM 8.1 mg/dL (8.5-10.1); CREATININE 1.1 mg/dL (0.55-1.3); POTASSIUM 3.2 mmol/L (3.5-5.1); TOT PROT 5.9 g/dl (6.4-8.2)
[2019-11-04] MEDS: DEXTROSE 5%-WATER - 1,000 ML IV SCH ×2 (12:23→17:37)
[2019-11-04] MEDS: KCL 10 MEQ IVPB 10 MEQ/100 ML INFUS.BAG IVPB SCH ×4 (12:24→17:36)
[2019-11-04 14:03] LABS: BASO % 0.2 % (0-2.0); HEMATOCRIT 33.2 % (32.4-45.2); HEMOGLOBIN 11.3 GM/dL (10.7-15.3); LYMPH % 8.9 % (8-40); MEAN CELL VOLUME 88.3 fl (80-96); MEAN PLT VOLUME 8.7 fl (7.5-11.1); MONO % 4.9 % (3.8-10.2); PLATELET COUNT 262 K/MM3 (134-434); RBC 3.76 M/mm3 (3.60-5.2); RDW 15.1 % (11.6-15.6); WHITE BLOOD COUNT 8.5 K/mm3 (4.0-10.0)
[2019-11-04] MEDS ORDERED: FUROSEMIDE 40 MG/4 ML INJECTABLE VIAL IVPUSH ONE (16:10)
[2019-11-04] MEDS: AMINO ACIDS 4.25%/D5W 1,000 ML IV SCH (21:51)
[2019-11-04] MEDS: ATORVASTATIN CA 40 MG TABLET (FP) PO SCH (21:52)
[2019-11-05] MEDS: ZINC SULFATE 220 MG CAPSULE (FP) PO SCH ×2 (10:14→22:04)
[2019-11-05] MEDS: ASCORBIC ACID 500 MG TABLET (FP) PO SCH (10:14)
[2019-11-05] MEDS: PANTOPRAZOLE SODIUM 40 MG VIAL IVPUSH SCH (10:14)
[2019-11-05] MEDS: ENOXAPARIN NA (PORCINE) 80 MG/0.8 ML DISP.SYRIN SQ SCH ×2 (10:23→22:08)
[2019-11-05 11:18] LABS: BASO % 0.1 % (0-2.0); HEMATOCRIT 33.9 % (32.4-45.2); HEMOGLOBIN 11.2 GM/dL (10.7-15.3); LYMPH % 12.4 % (8-40); MCH 29.1 pg (25.7-33.7); MCHC 33.1 g/dl (32.0-36.0); MEAN CELL VOLUME 87.9 fl (80-96); MEAN PLT VOLUME 8.4 fl (7.5-11.1); MONO % 5.3 % (3.8-10.2); NEUT % 82.2 % (42.8-82.8); PLATELET COUNT 223 K/MM3 (134-434); RBC 3.85 M/mm3 (3.60-5.2); RDW 14.9 % (11.6-15.6); WHITE BLOOD COUNT 7.5 K/mm3 (4.0-10.0)
[2019-11-05 11:46] LABS: ALBUMIN 1.6 g/dl (3.4-5.0); BILIRUBIN,TOTAL 1.3 mg/dL (0.2-1); CREATININE 1.1 mg/dL (0.55-1.3); MAGNESIUM 2.3 mg/dL (1.8-2.4); POTASSIUM 3.4 mmol/L (3.5-5.1); TOT PROT 5.8 g/dl (6.4-8.2)
[2019-11-05] MEDS: AMINO ACIDS 4.25%/D5W 1,000 ML IV SCH (16:56)
[2019-11-05] MEDS: DEXTROSE 5%-WATER - 1,000 ML IV SCH (16:58)
[2019-11-05] MEDS ORDERED: PT OWN MED DRAWER 7, Y5N ONE (18:48)
[2019-11-05] MEDS: ATORVASTATIN CA 40 MG TABLET (FP) PO SCH (22:04)
[2019-11-06] MEDS: ASCORBIC ACID 500 MG TABLET (FP) PO SCH (09:45)
[2019-11-06] MEDS: ZINC SULFATE 220 MG CAPSULE (FP) PO SCH (09:45)
[2019-11-06] MEDS: ENOXAPARIN NA (PORCINE) 80 MG/0.8 ML DISP.SYRIN SQ SCH (09:45)
[2019-11-06] MEDS: PANTOPRAZOLE SODIUM 40 MG VIAL IVPUSH SCH (09:45)
[2019-11-06 10:17] LABS: EOS % 0.1 % (0-4.5); HEMATOCRIT 32.5 % (32.4-45.2); HEMOGLOBIN 10.5 GM/dL (10.7-15.3); MCH 29.1 pg (25.7-33.7); MCHC 32.5 g/dl (32.0-36.0); MEAN CELL VOLUME 89.6 fl (80-96); MEAN PLT VOLUME 8.7 fl (7.5-11.1); MONO % 7.1 % (3.8-10.2); NEUT % 79.8 % (42.8-82.8); PLATELET COUNT 199 K/MM3 (134-434); RBC 3.63 M/mm3 (3.60-5.2); RDW 14.9 % (11.6-15.6); WHITE BLOOD COUNT 6.5 K/mm3 (4.0-10.0)
[2019-11-06 11:23] LABS: ALBUMIN 1.5 g/dl (3.4-5.0); BILIRUBIN,TOTAL 1.1 mg/dL (0.2-1); BLOOD UREA NITROGEN 52.1 mg/dL (7-18); CALCIUM 8.2 mg/dL (8.5-10.1); CREATININE 1.1 mg/dL (0.55-1.3); TOT PROT 5.6 g/dl (6.4-8.2)
[2019-11-06] MEDS ORDERED: KCL 10 MEQ IVPB 10 MEQ/100 ML INFUS.BAG IVPB SCH (12:15)
[2019-11-06] MEDS: AMINO ACIDS 4.25%/D5W 1,000 ML IV SCH (13:09)
[2019-11-06 15:13] VITALS: TEMP 98.9
[2019-11-06] MEDS ORDERED: DEXTROSE 5%-WATER - 1,000 ML IV SCH (18:29)
[2019-11-06] MEDS ORDERED: PROPOFOL 1,000,000 MCG/100 ML VIAL IVPB SCH ×3 (18:30→21:30)
[2019-11-06 19:54] VITALS: PULSE 86
[2019-11-06 22:42] VITALS: BP 90/34
== END 2019-11-06 20:30 | disposition expired | DRG 207 ==
LOC: FER 12:10 → J4S 22:17 → JICU 10-17 18:30 → J6S 11-02 13:18 → JICU-2 11-06 18:24
PROVIDERS: ADMIT Internal Medicine; ATTEND Internal Medicine
PROC: 5A1955Z Respiratory Ventilation, Greater than 96 Consecutive Hours (ICD-10-PCS; principal; 2019-10-17)
PROC: 0BH17EZ Insertion of Endotracheal Airway into Trachea, Via Natural or Artificial Opening (ICD-10-PCS; 2019-10-17)
DX: U07.1 COVID-19 (principal); J12.89 Other viral pneumonia; J96.01 Acute respiratory failure with hypoxia; K72.00 Acute and subacute hepatic failure without coma; I50.22 Chronic systolic (congestive) heart failure; E87.0 Hyperosmolality and hypernatremia; I47.1 Supraventricular tachycardia; G93.40 Encephalopathy, unspecified; Z85.038 Personal history of other malignant neoplasm of large intestine; Z85.05 Personal history of malignant neoplasm of liver; I95.9 Hypotension, unspecified; R74.0 Nonspecific elevation of levels of transaminase and lactic acid dehydrogenase [LDH]; D69.6 Thrombocytopenia, unspecified; I46.9 Cardiac arrest, cause unspecified; R00.1 Bradycardia, unspecified; D64.9 Anemia, unspecified; R79.1 Abnormal coagulation profile; E87.6 Hypokalemia; I25.10 Atherosclerotic heart disease of native coronary artery without angina pectoris; R22.1 Localized swelling, mass and lump, neck; H65.93 Unspecified nonsuppurative otitis media, bilateral; J32.9 Chronic sinusitis, unspecified; I11.0 Hypertensive heart disease with heart failure; K59.00 Constipation, unspecified
CPT/HCPCS: 36415; 36600; 70450-TC; 71045-TC-FY; 80048; 80053; 80074; 80076; 81003; 82378; 82550; 82553; 82728; 82803; 82962; 83516; 83520; 83605; 83615; 83735; 83880; 84100; 84484; 85025; 85610; 85730; 86038; 86140; 87040; 87070; 87086; 87205; 87633; 87798; 87804; 87807; 87899; 93005; 93010; 94002; 99285-25; E0186; G0480; J0131; U0002